=== PATIENT | male | born 1945 | race Caucasian/White ===

== ENCOUNTER → 2023-10-12 09:45 | Outpatient (REF) | payer MEDICARE, SELFPAY | LOC: HWRAD 09:45 | PROVIDERS: ATTENDING PHYSICIAN Family Medicine; FAMILY PHYSICIAN Nurse Practitioner Adult Health | DX: R74.01 Elevation of levels of liver transaminase levels (principal) | CPT/HCPCS: 76700 ==

== ENCOUNTER → 2023-11-24 13:20 | Outpatient (REF) | payer MEDICARE, SELFPAY | LOC: MRI 13:20 | PROVIDERS: ATTENDING PHYSICIAN Otolaryngology; FAMILY PHYSICIAN Nurse Practitioner Adult Health | DX: H90.A22 Sensorineural hearing loss, unilateral, left ear, with restricted hearing on the contralateral side (principal) | CPT/HCPCS: 70551 ==

== ENCOUNTER → 2024-07-08 11:27 | Outpatient (REF) | payer MEDICARE, SELFPAY | LOC: RAD 11:27 | PROVIDERS: ATTENDING PHYSICIAN Nurse Practitioner Adult Health | DX: M25.562 Pain in left knee (principal) | CPT/HCPCS: 73564 ==

== ENCOUNTER 2024-08-13 21:12 | Inpatient (IN) | payer MEDICARE, SELFPAY ==
[2024-08-13] VITALS (7 sets, daily range): BP systolic 107–144; BP diastolic 47–74; BMI 23.0
[2024-08-13 18:08] LABS: Hematocrit 32.6 % (39.0-52.0); Hemoglobin 10.9 g/dL (13.0-18.0); Mean Corp Hgb Conc. 33.4 g/dL (33.0-37.0); Mean Corpuscular Hgb 28.3 pg (27.0-31.0); Mean Corpuscular Volume 84.7 fL (80.0-94.0); Mean Platelet Volume 12.6 fL (7.4-10.4); Platelet Count 117 10^3/uL (130-400); Red Blood Cell Count 3.85 10^6/uL (4.70-6.10); Red Cell Dist. Width 16.5 % (11.5-14.5); White Blood Cell Count 5.8 10^3/uL (4.8-10.8)
[2024-08-13 18:15] LABS: INR 0.86; PT 12.3 Sec (11.4-14.6)
[2024-08-13 18:16] LABS: APTT 28.3 Sec (23.4-35.0)
--- NOTE | 2024-08-13 19:38 | W.PN.SURGUPD ---
Surgical Update
Surgical Update
79 yo M s/p L calcaneal fracture excision
-Left calcaneal fracture treatment with severe posterior skin necrosis
-Will need strict NWB to LLE in posterior splint
-Continue IV antibiotics, will need 14 day course of antibiotics post operatively
-PT/OT
-OK for DC evening 08/14 vs 08/15 pending medical stability
--- NOTE | 2024-08-13 20:23 | HPS.HSE ---
Family Physician
-
Family Physician: SAM STACY
Chief Complaint
-
L calcaneal Fx
History of Present Illness
79yo M with PMHx of HTN, CKD, thrombocytopenia came for urgent ORIF of L calcaneal Fx , traumatic occured when he has mis the step while walking. Podiatry concerned for posterior skin necrosis so advised admission for initial IV Abx
Medical History
Past Medical History
Past Medical History: Reports Other
Additional Past Medical History:
See HPI
Past Surgical History: Reports Other
Additional Past Surgical History:
See HPI
Social History
Tobacco: Non-smoker
Alcohol: None
Drug: None
Family History
Family History: Not pertinent
Allergies / Home Medications
Allergies reflects when Allergies were last updated in [facility].
Home Medications with original date entered in [facility]
Allergy/Medication List:
Allergies
Allergy/AdvReac Type Severity Reaction Status Date / Time
adhesive Allergy Rash Verified 08/13/24 20:08
chlorhexidine Allergy Rash Verified 08/13/24 20:08
titanium Allergy 'ate way Verified 08/13/24 17:22
through
skin'
Home Medications
amlodipine 10 mg tablet 10 mg PO HS 08/13/24
clonidine HCl 0.2 mg tablet 0.2 mg PO BID 08/13/24
hydralazine 25 mg tablet 25 mg PO DAILY 08/13/24
magnesium citrate 85 mg chewable tablet (SlowMag Muscle Recovery) mg PO DAILY 08/13/24
sodium bicarbonate 650 mg tablet 650 mg PO BID 08/13/24
Review of Systems
-
History Source: Patient
A 12 point ROS was completed and negative except as noted: Yes
Physical Exam
Vital Signs
Vital Signs
Temp Pulse Resp BP Pulse Ox
98.0 F 50 15 119/63 98
08/13/24 19:41 08/13/24 20:15 08/13/24 20:15 08/13/24 20:15 08/13/24 20:15
Physical Exam
General: Well Developed, Well Nourished and No Apparent Distress
HEENT: NormoCephalic, Anicteric and Moist mucous membranes
Respiratory: Clear; No Wheezes or Rhonchi
Cardiac: S1/S2 and Regular Rhythm; No Murmur
GI: Soft, Non Tender and Non Distended
Musculoskeletal: No Clubbing, No Cyanosis and No Edema
Skin: Warm; No Rash or Jaundice
Neuro: Awake, Alert, Oriented and AO x 3
Psych: Calm
Laboratory Results
-
08/13/24 17:57
Laboratory Results
PT 12.3 Sec (11.4-14.6) 08/13/24 17:57
INR 0.86 08/13/24 17:57
APTT 28.3 Sec (23.4-35.0) 08/13/24 17:57
Data Reviewed
-
Lab Data: Labs Reviewed by me
Impression/Plan
-
A/P
#Left calcaneal fracture treatment with severe posterior skin necrosis
Will need strict NWB to LLE in posterior splint
Ancef and switch to Keflex if improving in 24-48h as per podiatry. Will need 14 days Abx total
PT.OT
Pain mgmt
Podiatry consult
#CKD
follow BMP
#Chronic thrombocytopenia
follow CBC
DVT ppx on hep
Full code
I have spent at leat 55min admitting the patient
[2024-08-13 20:41] LABS: Blood Urea Nitrogen 39 mg/dl (9-20); Calcium 9.1 mg/dl (8.4-10.2); Carbon Dioxide 18 mmol/L (22-30); Chloride 112 mmol/L (98-107); Estimated Creatinine Clearance 32 ml/min; Glucose 89 mg/dl (70-99); Sodium 139 mmol/L (135-145); eGFR 43.83
--- NOTE | 2024-08-13 21:19 | TRANSFER ---
Report received from TECHNICAL SUPPORT ASSISTANT Isabel. Received pt in bed at 2041 s/p L calcaneal Fx excision, dressing to LLE CDI, toes numb d/t block, however, +circulation, & movement. VS WNL. No c/o pain at time of assessment. Care ongoing.
--- NOTE | 2024-08-13 21:37 | W.PN.UPDATE ---
Update Note
Progress Note Update
#Hyperkalemia
IVF
Lokelma
repeat BMP in 4h
telemetry
[2024-08-13] MEDS: LOKELMA 10 GRAM PO (22:13)
[2024-08-13] MEDS: NSS 1000 IV (22:14)
[2024-08-13] MEDS: NORVASC 10 MG PO (22:38)
[2024-08-14] MEDS: TYLENOL 650 MG PO (00:06)
[2024-08-14] MEDS: HEPARIN 5000 UNITS SC ×2 (00:07→09:49)
[2024-08-14] MEDS: ROXICODONE 5 MG PO (00:35)
[2024-08-14] MEDS: ANCEF 5 IV ×2 (01:30→09:49)
[2024-08-14] MEDS: MAGNESIUM OXIDE 500 MG PO (01:30)
[2024-08-14 03:01] VITALS: BP 149/67
[2024-08-14 03:45] LABS: Blood Urea Nitrogen 37 mg/dl (9-20); Calcium 9.2 mg/dl (8.4-10.2); Carbon Dioxide 19 mmol/L (22-30); Chloride 111 mmol/L (98-107); Estimated Creatinine Clearance 32 ml/min; Glucose 111 mg/dl (70-99); Potassium 5.1 mmol/L (3.5-5.1); Sodium 139 mmol/L (135-145); eGFR 43.83
[2024-08-14] MEDS: DILAUDID 0.25 MG IV (04:12)
--- NOTE | 2024-08-14 06:02 | PTCARENOTE ---
Pt stated pain meds did not work for him since regaining feeling to LLE. Stated that he takes magnesium maleate at home several times a day and that's the only thing that works for his lower extremity cramps. Encouraged pt to ask spouse to bring in
med from home and can have it ordered here for use after pharmacy verifies it. Pt stated he will call his when she wakes up this morning. Care ongoing.
[2024-08-14 06:55] LABS: % Basophils 0.4 % (0-2); % Eosinophils 3.8 % (0-6); % Immature Granulocytes 0.3 % (0-0.5); % Lymphocytes 7.2 % (20.5-51.1); % Monocytes 10.7 % (1.7-9.3); % Neutrophils 77.6 % (42.2-75.2); Absolute Eosinophils 0.3 10^3/uL (0-0.7); Absolute Lymphocytes 0.6 10^3/uL (1.2-3.4); Absolute Monocytes 0.8 10^3/uL (0.1-0.6); Absolute Neutrophils 6.1 10^3/uL (1.4-6.5); Hematocrit 35.6 % (39.0-52.0); Hemoglobin 11.6 g/dL (13.0-18.0); Mean Corp Hgb Conc. 32.6 g/dL (33.0-37.0); Mean Corpuscular Hgb 27.9 pg (27.0-31.0); Mean Corpuscular Volume 85.6 fL (80.0-94.0); Mean Platelet Volume 11.9 fL (7.4-10.4); Nucleated Red Blood Cells % 0 % (-); Platelet Count 113 10^3/uL (130-400); Red Blood Cell Count 4.16 10^6/uL (4.70-6.10); White Blood Cell Count 7.8 10^3/uL (4.8-10.8)
[2024-08-14 07:14] VITALS: BP 153/73
[2024-08-14 07:40] LABS: ALT (SGPT) 106 U/L (0-50); AST (SGOT) 66 U/L (17-59); Albumin 4.5 g/dl (3.5-5.0); Alkaline Phosphatase 127 U/L (38-126); Blood Urea Nitrogen 35 mg/dl (9-20); Calcium 9.6 mg/dl (8.4-10.2); Carbon Dioxide 23 mmol/L (22-30); Chloride 108 mmol/L (98-107); Estimated Creatinine Clearance 32 ml/min; Potassium 5.5 mmol/L (3.5-5.1); Sodium 141 mmol/L (135-145); Total Protein 7.7 g/dl (6.3-8.2); eGFR 43.83
[2024-08-14 07:50] LABS: Glucose 96 mg/dl (70-99); Total Bilirubin 0.4 mg/dl (0.2-1.3)
--- NOTE | 2024-08-14 09:31 | CM ---
CM reviewed medical records. CM met with patient in room. Patient confirmed demographics. Patient lives independently with . Patient does not have a history of VN, or SNF. Patient is active with his PCP> Patient has medication coverage.
Patient is agreeable to [facility]. Referral sent to [facility] shield installer. Patient is also requesting a wheelchair. CM updated [facility] RN liasion.
PLAN: Home with [facility], and wheelchair.
[2024-08-14 09:36] VITALS: BP 159/75; PULSE 71
[2024-08-14] MEDS: APRESOLINE 25 MG PO (09:47)
[2024-08-14] MEDS: CATAPRES 0.2 MG PO (09:48)
[2024-08-14] MEDS: SODIUM BICARBONATE 650 MG PO (09:49)
[2024-08-14 10:41] VITALS: BP 142/59; BP 159/75; PULSE 69
--- NOTE | 2024-08-14 10:53 | VNURNOTE ---
Home Health Liaison met with patient and spouse at bedside to discuss [facility] nurse/therapy, visits, schedule and homebound status. hey are agreeable and understand that visits at home will be 2-3 x per week to assess and teach medical management.
Both are aware that [facility] will contact them for start of care in 1-2 days after discharge from . Patient and spouse stated that they would prefer a knee scooter instead of a wheelchair. Knee scooter not covered by insurance. Cost to rent would
be $50/month. Spouse provided with contact for [employer] [phone]. She is agreeable to contact [employer] company to arrange delivery and payment.
Knee Scooter private pay w/ [employer]
[facility] referral completed in [facility].
[2024-08-14 11:07] VITALS: BP 158/71
[2024-08-14] MEDS: NSS 1000 IV (11:12)
--- NOTE | 2024-08-14 11:40 | W.DCSUMMARY ---
Discharge Summary
Discharge Data
Date of Admission: 08/13/24
Date of Discharge: 08/14/24
-
Pending Results: No
Hospital Course
79yo M with PMHx of HTN, CKD, thrombocytopenia
Presented after traumatic left calcaneal fracture from a misstep while walking. S/p ORIF with podiatry with posterior splint. Recommended per podiatry nonweightbearing to left lower extremity. Admit for severe posterior skin necrosis started on
Ancef. Cleared by PT for discharge along with podiatry for discharge with recommendations of antibiotics for 14 days. Duricef renally dose 500 mg daily per pharmacy recommendations.
Noted to have hyperkalemia of 6.1 improved to 5.1 and then was up again at 5.5. Started Lokelma however declined treatment as he ranges between 5.2 and 6.2.
Will need continued follow-up with podiatry as an outpatient.
On the day of discharge which was 08/14/2024. Had some muscle spasms in side splint. Otherwise no other complaints. Resting comfortably at side chair with legs elevated. Tolerated working with physical therapy well for which they recommended home
health.
Message via [employer] connect to ext js developer who has cleared him for discharge from a podiatric standpoint. With outpatient follow-up. Podiatry stated that they would add appointment and care instructions.
I called pharmacy to confirm Duricef renal dosing for which they recommended 500 mg daily for creat clearance of between 20-40.
NAD
Scleral Anicteric
MMM
No JVD
CTABL
RRR, S1/S2
Soft, NT, ND, BS+
Warm, Dry
Left lower extremity in a soft splint wrapped in Jas bandage. Able to wiggle toes with good cap refill feel soft and warm foot
AAOx3
Calm
More than 30 minutes spent in discharge including
Final examination of the patient
Summarizing hospital stay
Instructions for continuing care to all relevant caregivers
Preparation of discharge records, prescriptions, and referral forms
Total time spent (in minutes): 33mins
Discharge Plan
-
Patient Disposition: Home with Home Care
Discharge Diagnosis/Procedures: Left calcaneal fracture
Condition: Good
Diet: As tolerated
Activity: As tolerated
Activity Restrictions/Additional Instructions:
Presented after traumatic left calcaneal fracture from a misstep while walking. S/p ORIF with podiatry with posterior splint. Recommended per podiatry nonweightbearing to left lower extremity. Admit for severe posterior skin necrosis started on
Ancef. Cleared by PT for discharge along with podiatry for discharge with recommendations of antibiotics for 14 days. Duricef renally dose 500 mg daily per pharmacy recommendations.
Noted to have hyperkalemia of 6.1 improved to 5.1 and then was up again at 5.5. Started Lokelma however declined treatment as he ranges between 5.2 and 6.2.
Will need continued follow-up with podiatry as an outpatient.
Referrals:
Tyrone Ricks MD [Active, Podiatry] - in one to two weeks
UNKNOWN - PT DOES,NOT KNOW [Family Provider]
Prescriptions:
New
oxycodone 5 mg Tablet
5 mg PO Q4HPRN PRN (Reason: severe pain) 3 Days Qty: 12 0RF
aspirin 81 mg tablet
81 mg PO DAILY Qty: 35 0RF
acetaminophen 325 mg Tablet
650 mg PO Q4HPRN PRN (Reason: mild pain/GARCIA/temp> 100.4F) 7 Days Qty: 42 0RF
cefadroxil 500 mg capsule
500 mg PO DAILY 14 Days Qty: 14 0RF
Continued
hydralazine 25 mg Tablet
25 mg PO DAILY
clonidine HCl 0.2 mg Tablet
0.2 mg PO BID
Rx Instructions:
0.2 mg in AM
0.1 mg in afternoon
amlodipine 10 mg Tablet
10 mg PO HS
sodium bicarbonate 650 mg Tablet
650 mg PO BID
SlowMag Muscle Recovery 85 mg Tablet,Chewable
PO DAILY
thyroid (pork) [[place] Thyroid] 120 mg Tablet
120 mg PO DAILY
Discharge Date and Time
Print Language: TAMAZIGHT
--- NOTE | 2024-08-14 12:19 | CM ---
Cm reviewed medical records. Plan for discharge today.
PLAN: Home with [facility]
[2024-08-14] MEDS: NON-FORMULARY ITEM 1 UNIT PO ×3 (12:22→15:18)
[2024-08-14 15:00] VITALS: BP 134/59
--- NOTE | 2024-08-14 16:46 | W.PN.SURGUPD ---
Surgical Update
Surgical Update
79 yo M s/p calcaneal fracture treatment
-Patient seen and evaluated at bedside
-Posterior splint to remain C/D/I
-14 days duricef
-NWB to LLE
-Follow up with myself at [facility] in 2 weeks
[2024-08-14] MEDS: HEPARIN SC (18:00)
== END 2024-08-14 18:05 | disposition home health service (06) | DRG 501 ==
LOC: 2 SOUTH 21:12
PROVIDERS: Student in an Organized Health Care Education/Training Program; ADMITTING PHYSICIAN Internal Medicine; ATTENDING PHYSICIAN Hospitalist
PROC: 0LQP0ZZ Repair Left Lower Leg Tendon, Open Approach (ICD-10-PCS; 2024-08-13)
PROC: 0QSM04Z Reposition Left Tarsal with Internal Fixation Device, Open Approach (ICD-10-PCS; 2024-08-13)
PROC: 0QBM0ZZ Excision of Left Tarsal, Open Approach (ICD-10-PCS; 2024-08-13)
DX: M80.062A Age-related osteoporosis with current pathological fracture, left lower leg, initial encounter for fracture (principal); I96 Gangrene, not elsewhere classified; N18.9 Chronic kidney disease, unspecified; I12.9 Hypertensive chronic kidney disease with stage 1 through stage 4 chronic kidney disease, or unspecified chronic kidney disease; D69.6 Thrombocytopenia, unspecified
CPT/HCPCS: 73650; 76000; 80048; 80053; 85025; 85027; 85610; 85730; 93005; 97116; 97163; 97166; 97530; 97535

== ENCOUNTER 2024-09-19 14:15 | Emergency (ER) | payer MEDICARE, SELFPAY ==
[2024-09-19 14:17] VITALS: BP 129/72
--- NOTE | 2024-09-19 16:06 | ED.GENMED ---
History of Present Illness
General
Chief Complaint: Post Operative Problem(s)
Source: patient
Exam Limitations: none
Time Seen by Provider: 09/19/24 15:25
Nursing documentation reviewed up to this point in time: agreed with
History of Present Illness
History of Present Illness:
Patient is a 79-year-old male status post left calcaneal ORIF with fracture excision secondary to Achilles tendon repair on August [address] Rodriguez. Patient was admitted for severe posterior skin necrosis and given antibiotics. He has a splint in
place and has been instructed not to walk on it however reports today he fell and landed on his heel region. He denies any other injuries. He has no new pain but was concerned about the injury. He also reports Dr Rodriguez is closely following an
area that is darker in color to posterior heal region and was concerned about healing. He does have a visiting nurse comes out and just changed to several days ago.
Past History
Past History
ED Past Medical History: HTN, Hypercholesterolemia, Renal failure and Hypothyroidism
ED Past Surgical History: Orthopedic
Social History
Tobacco: Non-smoker
Alcohol: None
Drug: None
Living: with family
Phy Exam
General Physical Exam
General Presentation: no apparent distress
General age: appears stated age
General Skin: warm and dry
General Habitus: normal
General Mental: alert
General Hydration: appears well hydrated
Neurological Exam
Neurological Exam: alert and oriented x3
Musculoskeletal Exam
Musculoskeletal Exam: other (Patient presents with splint in place upon removal of splint there is visible blood to the heel. Upon dressing removal patient has surgical site noted darkened tissue( which is not new) however there is a new skin tear
no erythema or drainage,,, no active bleeding)
Skin Exam
Skin Exam: normal color and warm/dry
Psychiatric Exam
Psychiatric Exam: normal mood/affect
Course
Vital Signs
Initial and Last Documented VS:
Initial Vital Signs
Temp Pulse Resp BP Pulse Ox
98.0 F 57 16 129/72 98
09/19/24 14:17 09/19/24 14:17 09/19/24 14:17 09/19/24 14:17 09/19/24 14:17
Last Documented Vital Signs
Temp Pulse Resp BP Pulse Ox
98.0 F 57 16 129/72 98
09/19/24 14:17 09/19/24 14:17 09/19/24 14:17 09/19/24 14:17 09/19/24 16:07
MDM/Problems Addressed
Differential Diagnosis Includes:
Not limited to laceration abrasion
MDM/Problems Addressed:
As documented patient was status post ORIF of heel fracture followed by Dr. Rodriguez August 13. He is wearing a splint and nonweightbearing but today fell and hit the splint. On exam it appears that he has some chronic necrotic tissue which is not new
however on exam he has a skin tear to the site which is small. He did have visible blood in the splint but there is no further bleeding here in the ER. Case discussed with Dr. Rodriguez, I was able to send a picture to Dr. Rodriguez who reviewed the
small skin tear. No further bleeding here he is in no acute distress with no other injuries. Will dress with antibiotic ointment nonstick dressing and splint and he will have patient be reevaluated for skin check next week. He will let us front
desk know patient is to call on Sunday to make an appointment.
Patient does report he has appointment on Sunday with Dr. Rodriguez already. In addition visiting nurse will likely come Sunday or Sunday to change his dressing.
Return precautions given regarding any signs of infection or increased pain
*Pulse Oximetry
SaO2: 98
Oxygen Mode of Delivery: Room air
Patient hypoxic: no
*Critical Care Note
Total Time (30-74mins, 75-104mins- exclusive of procedures): Not Applicable
Patient Management
Discussion with other providers: Form Presser (podiatry Dr Rodriguez )
ED Attending Note
-
Portions of this chart may have been created with voice recognition software.� Occasional wrong word or��sound alike� substitutions may have occurred due to the inherent limitations of voice recognition software.
Discharge Plan
Departure
Patient Disposition: Home (Routine Discharge)
Date of Disposition: 09/19/24
Time of Disposition: 17:54
Patient with high blood pressure during this ER visit?: No
Condition: Fair
Covid-19: Not Applicable
Discharge Problem:
Abrasion of skin
Instructions: Abrasions - ED discharge instructions
Prescriptions:
No Action
hydralazine 25 mg Tablet
25 mg PO DAILY
clonidine HCl 0.2 mg Tablet
0.2 mg PO BID
Rx Instructions:
0.2 mg in AM
0.1 mg in afternoon
amlodipine 10 mg Tablet
10 mg PO HS
sodium bicarbonate 650 mg Tablet
650 mg PO BID
SlowMag Muscle Recovery 85 mg Tablet,Chewable
PO DAILY
thyroid (pork) [[place] Thyroid] 120 mg Tablet
120 mg PO DAILY
oxycodone 5 mg Tablet
5 mg PO Q4HPRN PRN (Reason: severe pain) 3 Days Qty: 12 0RF
aspirin 81 mg tablet
81 mg PO DAILY Qty: 35 0RF
acetaminophen 325 mg Tablet
650 mg PO Q4HPRN PRN (Reason: mild pain/GARCIA/temp> 100.4F) 7 Days Qty: 42 0RF
cefadroxil 500 mg capsule
500 mg PO DAILY 14 Days Qty: 14 0RF
Referrals:
Huy Rodriguez DPM [Active, Podiatry]
UNKNOWN - PT DOES,NOT KNOW [Family Provider]
Activity Restrictions/Additional Instructions:
As discussed visiting nurse may remove splint and wash wound with soap and water pat dry and apply small layer of antibiotic ointment and nonstick dressing, wrap with Ileana and padding. Please call podiatry Sunday to let the motel front desk clerk know. You
have an appointment on Sunday please follow-up close with podiatry for skin wound recheck. Return if any worsening of symptoms of increased pain fever chills redness or drainage from the wound or any further concerns.
Interventions
Interventions:
*Risk Screen - Suicide Last Done: 09/19/24 14:17
*Neglect/Abuse Screening Last Done: 09/19/24 14:17
*ED- Fall Risk Assessment Last Done: 09/19/24 17:24
ED-Skin Assessment Last Done: 09/19/24 15:41
Discharge Date and Time
Print Language: BURKINAN
== END 2024-09-19 18:04 | disposition home or self-care (01) ==
LOC: EMR 14:15
PROVIDERS: EMERGENCY PHYSICIAN Emergency Medicine
DX: S90.812A Abrasion, left foot, initial encounter (principal); W19.XXXA Unspecified fall, initial encounter; E78.00 Pure hypercholesterolemia, unspecified; E03.9 Hypothyroidism, unspecified; I10 Essential (primary) hypertension; Z98.890 Other specified postprocedural states
CPT/HCPCS: 99282

== ENCOUNTER 2024-10-10 00:28 | Emergency (ER) | payer MEDICARE, SELFPAY ==
[2024-10-10 00:31] VITALS: BP 143/68
[2024-10-10 00:42] VITALS: BMI 25.0
[2024-10-10 00:49] VITALS: BP 105/59
[2024-10-10 01:00] VITALS: BP 93/58
[2024-10-10 01:20] VITALS: BP 138/68
--- NOTE | 2024-10-10 02:46 | ED.GENMED ---
History of Present Illness
General
Chief Complaint: Skin Surface Trauma
Time Seen by Provider: 10/10/24 00:54
History of Present Illness
History of Present Illness:
79-year-old male with recent history of left calcaneal fracture status post repair on 08/13/24 presenting to the emergency department for bleeding at the site of his wound. Patient notes that he was having bleeding yesterday, went to see his doctor,
Dr. Rodriguez and he placed a stitch in the area. He noticed tonight that he was bleeding through his bandage, which prompted him to come to the hospital. He is not on any blood thinners, however does note no history of low platelets. The bleeding
was coming from an area of open status postsurgery. Denies any increased pain in the region. Denies fever. Denies additional acute medical complaint
Past History
Past History
ED Past Medical History: HTN, Hypercholesterolemia, Renal failure and Hypothyroidism
ED Past Surgical History: Orthopedic
Social History
Tobacco: Non-smoker
Alcohol: None
Drug: None
Living: with family
Phy Exam
Physical Exam
Physical Exam:
General: Well-appearing, no clinical signs of dehydration
HEENT: protecting airway
Neck: appears supple
CV: Normal heart rate
Resp: No accessory muscle use, no increased work of breathing
Abd: No distention
Extremities: Left lower extremity in splint. Splint removed with significant amount of saturation by blood. At the lateral aspect, circumferential area of open wound with active bleeding. No significant swelling or redness
Neuro: alert, no focal neurologic deficit
: deferred
Rectal: deferred
Psych: Normal affect
Skin: Intact
Course
Orders/Labs/Results
Orders:
Orders
10/10/24 01:23
Tranexamic Acid 1,000 mg .ROUTE .STK-MED ONE
Vital Signs
Initial and Last Documented VS:
Initial Vital Signs
Temp Pulse Resp BP Pulse Ox
97.9 F 61 20 143/68 99
10/10/24 00:31 10/10/24 00:31 10/10/24 00:31 10/10/24 00:31 10/10/24 00:31
Last Documented Vital Signs
Temp Pulse Resp BP Pulse Ox
97.9 F 61 20 138/68 98
10/10/24 00:31 10/10/24 00:31 10/10/24 00:31 10/10/24 01:20 10/10/24 01:14
Procedures
Laceration Closure
Left Lateral Foot:
Status of Wound: clean
Size of Wound in cm: 5
Anesthesia: 1% Lidocaine with epi
Type of Closure: other (figure 8)
Skin Closure Material: other (2-0 prolene)
Number of sutures: 4
Additional information:
3 figure 8, 1 uninterrupted
MDM/Problems Addressed
MDM/Problems Addressed:
79-year-old male status post repair of the left calcaneus presenting for wound complication. Vital signs are normal
On exam, patient with bleeding through his dressing to left lower extremity. Dressing was removed and wound was inspected. Moderate bleeding from the site, oozing. Suspected to be arterial. Multiple sutures placed to stop the bleeding with
additional direct pressure, Surgicel, Gelfoam. Bleeding is subsequently stopped. Wound was redressed and leg was resplinted in plantarflexion. Patient remained stable after period of observation. Plan for discharge with outpatient follow-up with
his orthopedist.
*Pulse Oximetry
SaO2: 98
Oxygen Mode of Delivery: Room air
Patient hypoxic: no
*Critical Care Note
Total Time (30-74mins, 75-104mins- exclusive of procedures): Not Applicable
ED Attending Note
-
Portions of this chart may have been created with voice recognition software.� Occasional wrong word or��sound alike� substitutions may have occurred due to the inherent limitations of voice recognition software.
Discharge Plan
Departure
Patient Disposition: Home (Routine Discharge)
Date of Disposition: 10/10/24
Time of Disposition: 02:34
Patient with high blood pressure during this ER visit?: No
Condition: Good
Discharge Problem:
Open wound of foot, complicated
Instructions: Wound Care (DC), Laceration Repair With Stitches (DC)
Prescriptions:
No Action
hydralazine 25 mg Tablet
25 mg PO DAILY
clonidine HCl 0.2 mg Tablet
0.2 mg PO BID
Rx Instructions:
0.2 mg in AM
0.1 mg in afternoon
amlodipine 10 mg Tablet
10 mg PO HS
sodium bicarbonate 650 mg Tablet
650 mg PO BID
SlowMag Muscle Recovery 85 mg Tablet,Chewable
PO DAILY
thyroid (pork) [[place] Thyroid] 120 mg Tablet
120 mg PO DAILY
oxycodone 5 mg Tablet
5 mg PO Q4HPRN PRN (Reason: severe pain) 3 Days Qty: 12 0RF
aspirin 81 mg tablet
81 mg PO DAILY Qty: 35 0RF
acetaminophen 325 mg Tablet
650 mg PO Q4HPRN PRN (Reason: mild pain/GARCIA/temp> 100.4F) 7 Days Qty: 42 0RF
cefadroxil 500 mg capsule
500 mg PO DAILY 14 Days Qty: 14 0RF
Referrals:
Lauryn Sandhu CRNP [Family Provider, Internal Medicine]
Huy Rodriguez DPM [Active, Podiatry]
Activity Restrictions/Additional Instructions:
You were seen in the emergency department for bleeding from a prior foot wound.
The bleeding was stopped with sutures and compressive bandages. Please follow-up with Dr. Rodriguez as soon as possible for reassessment.
Please follow-up closely with your primary care physician.
Return to the emergency department for any worsening of your symptoms including return of bleeding, or any development of chest pain, difficulty breathing, abdominal pain with persistent vomiting and inability to tolerate food or liquid by mouth
(concern for dehydration), weakness, headache or confusion, fever greater than 100.4, or any additional symptoms that are concerning to you.
Thank you for choosing [facility].
Interventions
Interventions:
*Risk Screen - Suicide Last Done: 10/10/24 00:31
*General Assessment Last Done: 10/10/24 00:44
*Neglect/Abuse Screening Last Done: 10/10/24 00:44
*ED- Fall Risk Assessment Last Done: 10/10/24 00:44
*ED COVID-19 Vaccine History Last Done: 10/10/24 00:44
ED-Skin Assessment Last Done: 10/10/24 00:44
Discharge Date and Time
Print Language: SWISS
== END 2024-10-10 02:51 | disposition home or self-care (01) ==
LOC: EMR 00:28
PROVIDERS: EMERGENCY PHYSICIAN Student in an Organized Health Care Education/Training Program; FAMILY PHYSICIAN Nurse Practitioner Adult Health
DX: M96.830 Postprocedural hemorrhage of a musculoskeletal structure following a musculoskeletal system procedure (principal); Y83.8 Other surgical procedures as the cause of abnormal reaction of the patient, or of later complication, without mention of misadventure at the time of the procedure; S91.302A Unspecified open wound, left foot, initial encounter; E78.00 Pure hypercholesterolemia, unspecified; E03.9 Hypothyroidism, unspecified; I12.9 Hypertensive chronic kidney disease with stage 1 through stage 4 chronic kidney disease, or unspecified chronic kidney disease; N18.9 Chronic kidney disease, unspecified; Z88.8 Allergy status to other drugs, medicaments and biological substances; Z91.048 Other nonmedicinal substance allergy status
CPT/HCPCS: 99283; 29515; 12002

== ENCOUNTER → 2024-10-16 12:09 | Outpatient (REF) | payer MEDICARE, SELFPAY | LOC: REG 12:09 | PROVIDERS: ATTENDING PHYSICIAN Student in an Organized Health Care Education/Training Program; FAMILY PHYSICIAN Nurse Practitioner Adult Health | DX: L03.90 Cellulitis, unspecified (principal) | CPT/HCPCS: 87070; 87075; 87147; 87186; 87205 ==

== ENCOUNTER 2024-12-08 12:53 | Outpatient (RCR) | payer MEDICARE, SELFPAY ==
[2024-12-08 13:25] VITALS: BP 135/50
[2024-12-08] MEDS: FERAHEME 117 MG IV (13:33)
[2024-12-08 14:30] VITALS: BP 129/63
== END 2024-12-09 08:40 | disposition home or self-care (01) ==
LOC: OID 12:53
PROVIDERS: ATTENDING PHYSICIAN Specialist; FAMILY PHYSICIAN Nurse Practitioner Adult Health
DX: D50.9 Iron deficiency anemia, unspecified (principal); N18.4 Chronic kidney disease, stage 4 (severe); E87.20 Acidosis, unspecified; E87.5 Hyperkalemia
CPT/HCPCS: 96365; Q0138

== ENCOUNTER 2024-12-15 13:54 | Outpatient (RCR) | payer MEDICARE, SELFPAY ==
[2024-12-15 14:21] VITALS: BP 152/61
[2024-12-15] MEDS: FERAHEME 117 MG IV (14:23)
[2024-12-15 15:12] VITALS: BP 149/62
== END 2024-12-16 09:48 | disposition home or self-care (01) ==
LOC: OID 13:54
PROVIDERS: ATTENDING PHYSICIAN Specialist; FAMILY PHYSICIAN Nurse Practitioner Adult Health
DX: N18.4 Chronic kidney disease, stage 4 (severe) (principal); D63.1 Anemia in chronic kidney disease; E87.20 Acidosis, unspecified; E87.5 Hyperkalemia
CPT/HCPCS: 96365; Q0138